=== PATIENT | female | born 1950 | race Caucasian/White ===

== ENCOUNTER → 2019-05-05 | Outpatient (CLI) | payer MEDICARE, OTHER ==
--- NOTE | 2019-05-05 11:08 | BD ---
EXAMINATION TYPE: Axial Bone Density DATE OF EXAM: 05/05/2019 COMPARISON: NONE CLINICAL HISTORY: 69 YR OLD FEMALE....ICD-10 CODE: Z78.0 POST MENOPAUSAL Height: 64.4 Weight: 169 FRAX RISK QUESTIONS: Family History (Parent hip fracture): YES RISK FACTORS HISTORY OF: Family History of Osteoporosis: YES, MOTHER WITH HIP FX Postmenopausal woman: YES, AT 50 YRS OLD MEDICATIONS: Additional Medications: CALCIUM NITRATE..? Additional History: NOTHING TO ADD HERE EXAM MEASUREMENTS: Bone mineral densitometry was performed using the [employer] System. Bone mineral density as measured about the Lumbar spine is: ----- L1-L4(G/cm2): 1.339 T Score Values are as follows: ----- L1: 1.2 ----- L2: 1.1 ----- L3: 1.3 ----- L4: 1.5 ----- L1-L4: 1.3 Bone mineral density FIRST DEXA SCAN AT [facility] Bone mineral density about the R hip (g/cm2): 1.040 Bone mineral density about the L hip (g/cm2): 1.057 T Score values are as follows: -----R Neck: -0.9 -----L Neck: -0.8 -----R Total: 0.3 -----L Total: 0.4 Bone mineral density FIRST DEXA AT [facility] FRAX%s: THERE IS A 13.3% CHANCE FOR A MAJOR OSTEOPOROTIC FX AND A 2.3% FOR HIP.....PROBABILITY FOR FX IN 10 YRS TIME IMPRESSION: Normal (Values between +1 and -1 indicate normal bone mass). Consider repeating this study in 5 year s or sooner if there is some new clinical indication. NOTE: T-SCORE=SD OF THE YOUNG ADULT MEAN.
--- NOTE | 2019-05-05 11:20 | USB ---
Reason for exam: additional evaluation requested from abnormal screening. History: Patient is postmenopausal. Benign MG stereo VAD BX LT of the left breast, May 06, 2016. Physical Findings: Nurse did not find any significant physical abnormalities on exam. US Breast RT Right complete breast ultrasound includes all four quadrants, the retroareolar region and axilla. Finding demonstrates a 6 x 3 x 7mm cystic lesion at 12 o'clock, likely a deep cyst, 6 month follow up pending biopsy, a 7 x 4 x 7mm mixed lesion at 10 o'clock, increased through transmission, complicated cyst and questionable ductal debris versus intraductal mass at the posterior nipple. These results were verbally communicated with the patient and result sheet given to the patient on 05/05/19. ASSESSMENT: Suspicious, BI-RAD 4 RECOMMENDATION: Ultrasound core biopsy of the right breast. Called Dr. Caldera with mammographic findings and has scheduled an appointment for the patient for 06/23/19 at 11:[address] Rodgers. Biopsy scheduled for 06/06/19 at 12:20. PRELIMINARY REPORT CALLED AND FAXED TO DR. RODGERS ON 05/05/19.
== END | disposition home or self-care (01) ==
LOC: RADUSWWP 09:28
PROVIDERS: ATTEND Family Medicine
DX: R92.8 Other abnormal and inconclusive findings on diagnostic imaging of breast (principal); N63.10 Unspecified lump in the right breast, unspecified quadrant; Z78.0 Asymptomatic menopausal state
CPT/HCPCS: 77080

== ENCOUNTER → 2019-06-06 | Day surgery (SDC) | payer MEDICARE, OTHER ==
[2019-06-06 11:30] VITALS: RESP 16; TEMP 98; BMI 26.6
[2019-06-06 13:27] VITALS: BP 104/67; PULSE 60
--- NOTE | 2019-06-06 14:12 | USB ---
EXAMINATION TYPE: US biopsy breast VAD RT DATE OF EXAM: 06/06/2019 CLINICAL HISTORY: R92.8 ABNORMAL MAMMOGRAM. TECHNIQUE: Ultrasound guided core biopsy of right breast. COMPARISON: NONE FINDINGS: The procedure of ultrasound guided core biopsy was explained to the patient. Benefits, alternatives, and risks were discussed. An informed consent was then obtained. The patient was placed in supine positioning for imaging and for the procedure. The overlying skin was prepped and draped in usual sterile fashion. Lidocaine was used as anesthetic into the skin and subcutaneous tissue up to area of concern in the right breast, 12:00 position. A nicolas was made with surgical scalpel. Under ultrasound guidance, a 9-gauge vacuum assisted biopsy gun device was used to obtain 3 core samples. The patient tolerated the procedure well without any immediate complication. The patient was kept in the radiology department for short stay after the procedure and then discharged home in stable condition. IMPRESSION: Successful, uncomplicated ultrasound guided core biopsy of area of concern in the 12:00 position right breast, full pathology results to follow. Pathology Results: Benign RIGHT BREAST, NEEDLE CORE BIOPSIES: Benign breast parenchyma with some stromal fibrosis and duct cystic changes consistent with fibrocystic spectrum disorder. Recommendation Follow up mammogram of the right breast in 6 months. [place]
== END ==
LOC: RADUSWWP 10:41
PROVIDERS: ATTEND Surgery
DX: N60.11 Diffuse cystic mastopathy of right breast (principal)
CPT/HCPCS: 88305; 19083; J2001

== ENCOUNTER → 2019-06-16 | Outpatient (CLI) | payer MEDICARE, OTHER ==
[2019-06-16 12:22] VITALS: BP 99/60; PULSE 62; RESP 16; TEMP 98; BMI 28.1
--- NOTE | 2019-06-16 12:51 | P.GSHP ---
History of Present Illness H&P Date: 06/16/19 Chief Complaint: abnormal mammogram and ultrasound Alva is a 69-year-old white female who in April 2019 underwent a bilateral mammogram at [facility]. The patient states that she was told that there was a concern about the right breast for which an ultrasound was performed following which a ultrasound guided core biopsy was performed on [id number]. Pathology revealed benign breast parenchyma with some stromal fibrosis and duct cyst changes consistent with fibrocystic spectrum disorder. She has had a prior left breast stereotactic core biopsy in 2016 which revealed fibrocystic changes including fibroadenomatoid hyperplasia, fibroadenoma formation, calcifications were noted, cysts, fibrosis, and sclerosing adenosis. The patient does not feel any masses or nodules in her breast. She did notice a very small amount of right breast nipple discharge after the biopsy, but this has stopped. It was not bloody and was white in nature. She states occasionally she will notice. Family History: father: skin cancer patient: basal cell cancer Hormonal History: menarche: 12 , breast fed: yes, first at 17 menopause: 48 BCP: 15 years hormones: none Surgical history: 1. Appendectomy Medical history: none Social history: Smoke: Smoked for 20 years under a pack a day, stopped 10 years ago Alcohol: occasional drugs:none - Constitutional Constitutional: Denies chills, Denies fever - EENT Eyes: denies blurred vision, denies pain Ears: deny: decreased hearing, tinnitus Ears, nose, mouth and throat: Denies headache, Denies sore throat - Breasts Breasts: bilateral: as per HPI - Cardiovascular Cardiovascular: Denies chest pain, Denies shortness of breath - Respiratory Respiratory: Denies cough, Denies 7 - Gastrointestinal Gastrointestinal: Denies abdominal pain, Denies diarrhea, Denies nausea, Denies vomiting - Genitourinary (Female) Genitourinary: Denies dysuria, Denies hematuria - Menstruation Menstruation: Reports postmenopausal - Musculoskeletal Comment: arthritis - Integumentary Integumentary: Denies pruritus, Denies rash - Neurological Neurological: Denies numbness, Denies weakness - Psychiatric Psychiatric: Denies anxiety, Denies depression - Endocrine Endocrine: Denies fatigue, Denies weight change - Hematologic/Lymphatic Comment: none - Allergic/Immunologic Allergic/Immunologic: Reports seasonal allergies Past Medical History Additional Past Medical History / Comment(s): basal cell carcinoma-69 History of Any Multi-Drug Resistant Organisms: None Reported Additional Past Surgical History / Comment(s): basal cell removed from face. right knee arthroscopy. benign stereotactic core biopsies bilateral breasts Smoking Status: Former smoker Medications and Allergies Home Medications Medication Instructions Recorded Confirmed Type Ibuprofen [Motrin] 800 mg PO DAILY PRN 05/25/19 06/16/19 History Aspirin [Adult Low Dose Aspirin EC] 81 mg PO DAILY 06/06/19 06/16/19 History Fexofenadine HCl [Brii Allergy] 180 mg PO DAILY 06/06/19 06/16/19 History Bimatoprost [Lumigan .01% Ophth 1 drop BOTH EYES HS 06/16/19 06/16/19 History Soln] Brimonidine Tartrate/Timolol 1 drop BOTH EYES BID 06/16/19 06/16/19 History [Combigan 0.2%-0.5% Eye Drops] [place]-3/Dha/Epa/Fish Oil [Fish Oil 1 each PO DAILY 06/16/19 06/16/19 History 500 mg Softgel] Allergies Allergy/AdvReac Type Severity Reaction Status Date / Time No Known Allergies Allergy Verified 06/16/19 11:55 Surgical - Exam Vital Signs Temp Pulse Resp BP Pulse Ox 98.0 F 62 16 99/60 94 L 06/16/19 12:19 06/16/19 12:19 06/16/19 12:19 06/16/19 12:19 06/16/19 12:19 BMI 28.1 - General well developed, well nourished, no distress - Eyes normal ocular movement - ENT no hearing loss, no congestion - Neck no masses, trachea midline - Respiratory normal respiratory effort, clear to auscultation - Cardiovascular Rhythm: regular Heart Sounds: normal: S1, S2 - Abdomen Small umbilical hernia Abdomen: soft, non tender, no guarding, no rigid, no rebound - Integumentary normal turgor - Neurologic no disoriented, no combative - Musculoskeletal recent surgery right foot normal posture - Psychiatric oriented to time, oriented to person, oriented to place, speech is normal, memory intact Breast examination: Right breast multi-positional exam fibrocystic changes, well-healed scar from recent core biopsy, there is one area of the nipple with a slight white discharge appears to be slightly milky and non-worrisome Right axilla: No adenopathy of concern Left breast: Multi-positional exam fibrocystic changes no dominant masses or nodules of concern Left axilla: No adenopathy of concern Results Ultrasound results reviewed, pathology results reviewed from [id number] Assessment and Plan Assessment: Impression: 1. Fibrocystic breast changes 2. Abnormal mammogram/ultrasound of the right breast 3. Personal history of basal cell carcinoma 4. Family history of cancer 5. No acute discharge 1 opening on the nipple on the right which patient states started after the biopsy and has stopped Plan: 1. Right breast mammogram and ultrasound in 6 months with position exam at that time 2. Patient to follow-up in one month if te nipple discharge continues 3. Medical management of medical conditions Cc: Dr. Caldera
== END ==
LOC: WWCWWP 11:43
PROVIDERS: ATTEND Surgery
DX: Z53.9 Procedure and treatment not carried out, unspecified reason (principal)

== ENCOUNTER → 2020-05-17 | Outpatient (CLI) | payer MEDICARE, OTHER ==
--- NOTE | 2020-05-18 08:28 | MM ---
Reason for exam: additional evaluation requested from prior study. Last mammogram was performed 1 year and 1 month ago. History: Patient is postmenopausal. Benign US biopsy breast VAD RT of the right breast, June 06, 2019. Benign MG stereo VAD BX LT of the left breast, May 06, 2016. Benign excisional biopsy of the left breast. Physical Findings: Nurse did not find any significant physical abnormalities on exam. MG 3D Diag Mammo W/Cad SAMARIA Bilateral CC and MLO view(s) were taken. CC with magnification, LM with magnification, and AT view(s) were taken of the right breast. Prior study comparison: May 05, 2019, right breast US breast RT. April 07, 2019, mammogram. The breast tissue is heterogeneously dense. This may lower the sensitivity of mammography. Previous mammotome biopsy in the left beast. There is chronic nodularity in the left breast. Unchanged subareolar nodularity right MLO view. Increasing grouped calcifications right upper outer quadrant for which a biopsy is recommended. At 9-10 o'clock similar calcifications are slightly increasing as well. These results were verbally communicated with the patient and result sheet given to the patient on 05/17/20. ASSESSMENT: Incomplete: need additional imaging evaluation, BI-RAD 0 RECOMMENDATION: Ultrasound of the right breast.
--- NOTE | 2020-05-18 08:34 | USB ---
Reason for exam: additional evaluation requested from abnormal screening. History: Patient is postmenopausal. Benign US biopsy breast VAD RT of the right breast, June 06, 2019. Benign MG stereo VAD BX LT of the left breast, May 06, 2016. Benign excisional biopsy of the left breast. US Breast RT Right complete breast ultrasound includes all four quadrants, the retroareolar region and axilla. Finding demonstrates a 6 x 2 x 5mm cystic lesion at 12 o'clock, stable and benign and ducts at the posterior nipple with possible debris or other filling defect. A similar area was recently biopsied and returned benign. We note a long standing history of benign white nipple discharge in this patient. 3 month follow up recommended. These results were verbally communicated with the patient and result sheet given to the patient on 05/17/20. ASSESSMENT: Suspicious, BI-RAD 4 RECOMMENDATION: Stereotactic core biopsy of the right breast. (increasing grouped calcifications, more anterior group) Called office with mammographic findings and has scheduled an appointment for the patient for 05/25/20 at 4:[address] Gilbert. Biopsy scheduled for 05/31/20 at 8:00. PRELIMINARY REPORT CALLED AND FAXED TO DR. GILBERT ON 05/18/20.
== END | disposition home or self-care (01) ==
LOC: RADMAMWWP 13:29
PROVIDERS: ATTEND Surgery
DX: R92.8 Other abnormal and inconclusive findings on diagnostic imaging of breast (principal)
CPT/HCPCS: 77066; 76641; G0279; 77062

== ENCOUNTER → 2020-05-31 | Day surgery (SDC) | payer MEDICARE, OTHER ==
[2020-05-31 07:30] VITALS: RESP 16
--- NOTE | 2020-05-31 08:31 | P.OP ---
Date of Procedure: 05/31/20 Preoperative Diagnosis: Mammographic abnormality right breast/microcalcifications increasing Postoperative Diagnosis: Same Procedure(s) Performed: Right breast stereotactic core biopsy Anesthesia: local Surgeon: Amy Gilbert Estimated Blood Loss (ml): 0 Pathology: other (Breasts tissue/microcalcifications present in radiograph) Condition: stable Disposition: same day Indications for Procedure: Microcalcifications increasing grouped, anterior group Operative Findings: Microcalcifications of concern in specimen Description of Procedure: The patient is a 70-year-old white female who was noted to have an area of incr easing cold calcifications in the anterior portion of the right breast. Stereotactic core biopsy was recommended. Risks and benefits of the procedure were discussed with the patient. Alternatives such as watchful waiting or open biopsy were not recommended. The patient understood and wished to proceed. Patient was taken to the stereotactic core biopsy room. She was placed prone on the lo-rad table. A molder sweep film was obtained. The area of concern was identified. A lateral to medial approach was utilized. The lesion was targeted. The skin was prepped using Betadine. 24 mL of 1% lidocaine were used to anesthetize the area of concern. A 9-gauge vacuum-assisted core rotating biopsy needle was driven to the correct coordinates. The needle was fired. Post fire film was obtained. The needle was noted to be in the correct location. A core biopsies were obtained from 3 through 9 with 2 samples at the 6 o'clock position. Radiograph of the specimen revealed the area of concern had been sampled. A secure marked top marker was left. Radiograph revealed this to be in the correct location. The patient tolerated the procedure in stable condition. The specimen was felt to be concordant. The patient will follow with Dr. Joyce next week. Specimen was sent to pathology.
[2020-05-31 08:47] VITALS: BP 99/66; PULSE 67; TEMP 98
== END ==
LOC: RADMAMWWP 07:02
PROVIDERS: ATTEND Surgery
DX: N60.11 Diffuse cystic mastopathy of right breast (principal); N64.89 Other specified disorders of breast
CPT/HCPCS: 88305; 19081; A4648; J2001

== ENCOUNTER → 2020-06-07 | Outpatient (CLI) | payer MEDICARE, OTHER ==
[2020-06-07 12:32] VITALS: BP 130/71; PULSE 72; RESP 18; TEMP 97.7
--- NOTE | 2020-06-07 12:47 | P.PN ---
Subjective Progress Note Date: 06/07/20 Principal diagnosis: Stero biopsy results right breast Alva is a 70-year-old white female status post right breast are detected core biopsy and [id number]. Pathology was benign and concordant. Patient has no complaints related to the procedure. Objective - Vital Signs Vital signs: Vital Signs Temp 97.7 F 06/07/20 12:28 Pulse 72 06/07/20 12:28 Resp 18 06/07/20 12:28 BP 130/71 06/07/20 12:28 Pulse Ox 100 06/07/20 12:28 Intake & Output 06/06/20 06/07/20 06/07/20 18:59 06:59 18:59 Weight 63.503 kg - Exam BMI 23.3 - Constitutional General appearance: Present: average body habitus - EENT Eyes: Present: EOMI ENT: Present: hearing grossly normal - Neck Neck: Present: normal ROM - Respiratory Respiratory: bilateral: CTA - Cardiovascular Rhythm: regular Heart sounds: normal: S1, S2 - Integumentary Integumentary Comment(s): Biopsy site right breast clean and dry no evidence of infection Assessment and Plan Assessment: Impression: 1. Patient status post right prostatectomy core biopsy pathology benign and co ncordant Plan: 1. Repeat right breast mammogram in 6 months however patient is going to be in [place] and wishes to wait and have the mammogram demonstrated returns which will be approximately 11 months. She understands the recommendation was for 6 months however she is not going to be available. 2. See patient when she has bilateral mammogram CC: DR. Trey Caldera encounter 10 minutes, > 50% of time in planning and counselling
== END ==
LOC: WWCWWP 12:19
PROVIDERS: ATTEND Surgery
DX: Z53.9 Procedure and treatment not carried out, unspecified reason (principal)